=== PATIENT | male | born 1965 ===

== ENCOUNTER 2017-02-03 19:58 | Observation (INO) | payer MEDICAID, MEDICARE ==
[2017-02-03 19:58] VITALS: BMI 24.1
--- NOTE | 2017-02-03 21:06 | ED PDOC ---
Arrival/HPI - General Chief Complaint: Altered Mental Status Time Seen by Provider: 02/03/17 20:01 Historian: Patient - History of Present Illness Narrative History of Present Illness (Text): 02/03/17 20:58 Jan Arndt is a 51 year old male, with a past medical history of hypertension, and CVA , presents to the emergency department via EMS for evaluation following a witnessed seizure episode outdoors. Per collateral information, patient had foaming at the mouth and rolled back his eyes during the seizure. Patient does not recall what happened during the episode, but informs of tongue biting. Through square dance caller, it was established that patient has residual right sided weakness following previous stroke and is noncompliant with his medications. Currently patient is awake, alert and oriented X3. He also has a superficial abrasion to the left side of head due to fall. Denies any fever, chills, headache, chest pain, shortness of breath, nausea, vomiting, back pain, neck pain, or any other complaints at this time. Time/Duration: Prior to Arrival Symptom Onset: Sudden Activities at Onset: Light Context: Other (Outdoors ) Past Medical History - Provider Review Nursing Documentation Reviewed: Yes - Infectious Disease Hx of Infectious Diseases: None - Cardiac Hx Cardiac Disorders: Yes Hx Hypertension: Yes - Pulmonary Hx Respiratory Disorders: No - Neurological Hx Neurological Disorder: Yes HX Cerebrovascular Accident: Yes (2 years ago) Hx Seizures: Yes - HEENT Hx HEENT Disorder: No - Renal Hx Renal Disorder: No - Endocrine/Metabolic Hx Endocrine Disorders: No - Hematological/Oncological Hx Blood Disorders: No - Integumentary Hx Dermatological Disorder: No - Musculoskeletal/Rheumatological Hx Falls: No - Gastrointestinal Hx Gastrointestinal Disorders: No - Genitourinary/Gynecological Hx Genitourinary Disorders: No - Psychiatric Hx Psychophysiologic Disorder: No Hx Substance Use: (Post ictal) - Anesthesia Hx Anesthesia: No Family/Social History - Physician Review Nursing Documentation Reviewed: Yes Family/Social History: No Known Family HX Smoking Status: Unknown If Ever Smoked Hx Alcohol Use: No Hx Substance Use: (Post ictal) Allergies/Home Meds Allergies/Adverse Reactions: Allergies No Known Allergies Allergy (Verified 06/29/15 11:46) Home Medications: Home Meds Medication Instructions Recorded Confirmed Amlodipine Besylate 5 mg PO DAILY 06/29/15 06/29/15 Aspirin [Aspirin EC] 81 mg PO DAILY 06/29/15 06/29/15 Atorvastatin [Lipitor] 40 mg PO HS 06/29/15 06/29/15 Fluoxetine Hydrochloride [Prozac] 20 mg PO DAILY 06/29/15 06/29/15 Losartan/Hydrochlorothiazide 1 tab PO DAILY 06/29/15 06/29/15 [Losartan-Hctz 100-12.5 mg Tab] Metoprolol Succinate [Toprol XL] 50 mg PO DAILY 06/29/15 06/29/15 Oxcarbazepine [Trileptal] 600 mg PO BID 06/29/15 06/29/15 Review of Systems - Physician Review All systems were reviewed & negative as marked: Yes - Review of Systems Constitutional: Normal. absent: Fatigue, Fevers Respiratory: Normal. absent: SOB, Cough Cardiovascular: Normal. absent: Chest Pain, Palpitations Skin: Other (Abrasion on left pariental scalp ) Neurological: Seizure. absent: Headache, Dizziness Psychiatric: Normal Physical Exam Vital Signs Reviewed: Yes Vital Signs Temp Pulse Resp BP Pulse Ox 02/03/17 22:18 70 16 142/92 H 98 02/03/17 20:05 98.5 F 106 H 17 159/110 H 99 Temperature: Afebrile Blood Pressure: Hypertensive Pulse: Tachycardic Respiratory Rate: Normal Appearance: Positive for: Well-Appearing, Non-Toxic, Comfortable Pain Distress: None Mental Status: Positive for: Alert and Oriented X 3 Finger Stick Blood Glucose: 99 - Systems Exam Head: Present: Normocephalic, Abrasion (left pariental scalp ) Pupils: Present: PERRL Extroacular Muscles: Present: EOMI Conjunctiva: Present: Normal Mouth: Present: Moist Mucous Membranes Neck: Present: Normal Range of Motion Respiratory/Chest: Present: Clear to Auscultation, Good Air Exchange. No: Respiratory Distress, Accessory Muscle Use Cardiovascular: Present: Regular Rate and Rhythm, Normal S1, S2. No: Murmurs Abdomen: Present: Normal Bowel Sounds. No: Tenderness, Distention, Peritoneal Signs, Rebound, Guarding Upper Extremity: Present: Normal Inspection. No: Cyanosis, Edema Lower Extremity: Present: NORMAL PULSES, Neurovascularly Intact, Capillary Refill < 2 s, Other (Noted residual right lower extremity weakness ). No: Edema Neurological: Present: GCS=15, CN II-XII Intact, Speech Normal, Motor Func Grossly Intact, Normal Sensory Function Skin: Present: Warm, Dry, Normal Color. No: Rashes Psychiatric: Present: Alert, Oriented x 3, Normal Insight, Normal Concentration Medical Decision Making ED Course and Treatment: 02/03/17 21:08 Impression: A 51 year old male who presents to the emergency department for evaluation following a witnessed seizure episode. Differential Diagnosis included but are not limited to: seizure Plan: -- CT head -- EKG -- Labs, cardiac enzymes -- Chest X-ray -- Reassess and disposition Progress Notes: 02/03/17 21:15 EKG interpreted by me: Sinus tachycardia @ 104 bpm. LVH. Nonspecific STT changes. 02/03/17 21:25 Chest X-ray interpreted by me: No acute process. 02/03/17 22:24 CT Head results reviewed: FINDINGS: Brain: No acute intracranial hemorrhage. Multiple areas of prior cerebral infarction, including left frontoparietal and right basal ganglion. No edema. Ventricles: No significant ventriculomegaly. Bones: No acute displaced fracture. Sinuses: Unremarkable as visualized. No acute sinusitis. Mastoid air cells: Unremarkable as visualized. No mastoid effusion. IMPRESSION: Stable CT examination of the head, dating back to 06/30/2015, without acute intracranial hemorrhage, or suspicious mass effect. 02/03/17 22:25 Case discussed with clay Santos MD, who is aware and agrees with the plan to observe patient at telemetry for seizure. Accepts patient under hospitalist service. - Lab Interpretations Lab Results: 02/03/17 20:50 02/03/17 20:50 Lab Results 02/03/17 20:50: WBC 3.8 L D, RBC 4.47, Hgb 14.3, Hct 39.3 L, MCV 87.9, MCH 32.0 , MCHC 36.4, RDW 11.8, Plt Count 162, MPV 10.3 02/03/17 20:50: Sodium 140, Potassium 3.7, Chloride 103, Carbon Dioxide 24, Anion Gap 17, BUN 11, Creatinine 1.0, Est GFR ( Amer) > 60, Est GFR (Non- Af Amer) > 60, Random Glucose 88, Calcium 9.2, Total Bilirubin 1.2, AST 30, ALT 30, Alkaline Phosphatase 66, Lactate Dehydrogenase 495, Total Creatine Kinase 381 H, CK-MB (CK-2) 4.1 H, CK-MB (CK-2) % Cancelled, Troponin I 0.02, Total Protein 7.3, Albumin 4.0, Globulin 3.3, Albumin/Globulin Ratio 1.2 02/03/17 20:50: PT 13.2 H, INR 1.22 H, APTT 27.7 I have reviewed the lab results: Yes - RAD Interpretation Radiology Orders: 02/03/17 20:29 HEAD W/O CONTRAST [CT] Stat CHEST PORTABLE [RAD] Stat Rewriter: ED Physician, Radiologist - EKG Interpretation Interpreted by ED Physician: Yes Type: 12 lead EKG - Medication Orders Current Medication Orders: Phenytoin 1,000 mg/ Sodium (Chloride) 250 mls @ 300 mls/hr IVPB STAT STA Stop: 02/03/17 23:13 - Scribe Statement The provider has reviewed the documentation as recorded by the Jaleesaibe Rachel Crabtree Provider Attestation: Provider Scribe Attestation: All medical record entries made by the Scribe were at my direction and personally dictated by me. I have reviewed the chart and agree that the record accurately reflects my personal performance of the history, physical exam, medical decision making, and the department course for this patient. I have also personally directed, reviewed, and agree with the discharge instructions and disposition. Disposition/Present on Arrival - Present on Arrival Any Indicators Present on Arrival: No History of DVT/PE: No History of Uncontrolled Diabetes: No Urinary Catheter: No History of Decub. Ulcer: No History Surgical Site Infection Following: None - Disposition Have Diagnosis and Disposition been Completed?: Yes Diagnosis: Seizure Disposition: HOSPITALIZED Disposition Time: 22:27 Patient Plan: Observation Condition: STABLE Referrals: PCP,NO [Primary Care Provider] - Follow up with primary
[2017-02-03 21:12] LABS: HEMOGLOBIN 14.3 gm/dL (14.0-18.0); MEAN CELL VOLUME 87.9 fL (80.0-105.0); MEAN CORPUSCULAR HGB CONC 36.4 g/dl (31.0-37.0); MEAN PLATELET VOLUME 10.3 fl (7.0-11.0); RBC 4.47 10^6/uL (3.5-6.1); RED CELL DISTRIBUTION WIDTH 11.8 % (11.5-14.5); WHITE BLOOD COUNT 3.8 10^3/ul (4.5-11.0)
[2017-02-03 21:21] LABS: ALB/GLOB RATIO 1.2 (1.1-1.8); ALT/SGPT 30 U/L (7-56); AST/SGOT 30 U/L (15-59); BLOOD UREA NITROGEN 11 mg/dL (7-21); CALCIUM 9.2 mg/dL (8.4-10.5); GFR AFRICAN-AMERICAN > 60; GFR NON-AFRICAN AMERICAN > 60
[2017-02-03 21:32] LABS: TROPONIN I 0.02 ng/mL
[2017-02-03 21:36] LABS: CK-MB 4.1 ng/mL (0.0-3.6)
--- NOTE | 2017-02-03 22:07 | CT ---
EXAM: CT Head Without Intravenous Contrast CLINICAL HISTORY: 51 years old, male; Signs and symptoms; Other: Seizures; Additional info: Seizure TECHNIQUE: Axial computed tomography images of the head/brain without intravenous contrast. This CT exam was performed using one or more of the following dose reduction techniques: automated exposure control, adjustment of the mA and/or kV according to patient size, and/or use of iterative reconstruction technique. COMPARISON: CT - HEAD W/O CONTRAST 06/30/2015 11:56:33 AM FINDINGS: Brain: No acute intracranial hemorrhage. Multiple areas of prior cerebral infarction, including left frontoparietal and right basal ganglion. No edema. Ventricles: No significant ventriculomegaly. Bones: No acute displaced fracture. Sinuses: Unremarkable as visualized. No acute sinusitis. Mastoid air cells: Unremarkable as visualized. No mastoid effusion. IMPRESSION: Stable CT examination of the head, dating back to 06/30/2015, without acute intracranial hemorrhage, or suspicious mass effect.
[2017-02-03 22:19] LABS: INR 1.22 (0.93-1.08); PARTIAL THROMBOPLASTIN TIME 27.7 Seconds (23.7-30.8); PROTHROMBIN TIME 13.2 Seconds (9.9-11.8)
[2017-02-04 02:31] LABS: CK-MB 4.8 ng/mL (0.0-3.6)
--- NOTE | 2017-02-04 02:53 | CP.PCM.HP ---
Addendum entered and electronically signed by Marlon Orta DO 03:40: For A/P: DVT PPHXS is by Heparin Original Note: <Marlon Orta - Last Filed: 02/04/17 02:53> History of Present Illness - History of Present Illness History of Present Illness: Marlon Orta DO PGY-1 CC: Seizure HPI: Mr. Galvan is a 51 y/o AA male with a PMHx of HTN and CVA (Aug 2013) who presented with a c/o seizure that started around 8:00 PM on 02/03/17. Patient stated that he did feel a mild visual aura as well as numbness and tingling in his right LE before the seizure. He also stated that he knew it was coming so he sat down. Patient stated that he has had two seizures in the past. The seizure was witnessed by a bystander unknown to the patient, who stated that he was foaming at the mouth and that his eyes were rolling back into his head. Patient stated that he did not lose bowel or bladder, and that he did not hit his head, but per ED he did hit the left side of his head. Patient further stated that he felt a little confused at the time he was examined. Patient denied fever, chills, headache, chest pain, sob, nausea, vomiting, diarrhea, or any other complaints not outlined in ROS below. PMHx: See HPI PSHx: Not elicited Allergies: NKDA SocHx: EtOH: Smoking: Illicits: FamHx: Unavailable Meds: Amlodipine, ASA, Lipitor, Prozac, Losartan/HCTZ, Metoprolol, Oxcarbazepine all meds noncompliant Present on Admission - Present on Admission Any Indicators Present on Admission: No Review of Systems - Review of Systems Review of Systems: ROS: Constitutional: pt denies fever, chills, generalized weakness ENT: pt denies dysphagia, ofalgia, hearing deficit, rhinorrhea Eyes: pt denies sudden loss of vision, diplopia, blurred vision MSK: pt denies muscle stiffness, joint pain, extremity cramping Cardio: pt denies cp, sob, dvt Pulm: pt denies cough, hemoptysis, wheeze GI: pt denies loss of appetite, abdominal pain, constipation, melena, n/v/d : pt denies burning on urination, urinary frequency, hematuria, urinary urgency Neuro: +pt admits right sided weakness in LE; pt denies paresis, paresthesia, dizziness, henning, numbness, tingling Derm: pt denies skin changes, lesions, nail changes Endo: pt denies intolerance to heat/cold, diaphoresis, night sweats, polydipsia Psych: pt denies anxiety, depression, mood changes Past Patient History - Infectious Disease Hx of Infectious Diseases: None - Past Social History Smoking Status: Unknown If Ever Smoked - CARDIAC Hx Cardiac Disorders: Yes Hx Hypertension: Yes - PULMONARY Hx Respiratory Disorders: No - NEUROLOGICAL Hx Neurological Disorder: Yes HX Cerebrovascular Accident: Yes (2 years ago) Hx Seizures: Yes - HEENT Hx HEENT Problems: No - RENAL Hx Chronic Kidney Disease: No - ENDOCRINE/METABOLIC Hx Endocrine Disorders: No - HEMATOLOGICAL/ONCOLOGICAL Hx Blood Disorders: No - INTEGUMENTARY Hx Dermatological Problems: No - MUSCULOSKELETAL/RHEUMATOLOGICAL Hx Falls: No - GASTROINTESTINAL Hx Gastrointestinal Disorders: No - GENITOURINARY/GYNECOLOGICAL Hx Genitourinary Disorders: No - PSYCHIATRIC Hx Psychophysiologic Disorder: No Hx Substance Use: (Post ictal) - SURGICAL HISTORY Hx Surgeries: No - ANESTHESIA Hx Anesthesia: No Meds Allergies/Adverse Reactions: Allergies Allergy/AdvReac Type Severity Reaction Status Date / Time No Known Allergies Allergy Verified 06/29/15 11:46 Physical Exam - Additional Findings Additional findings: Physical Exam: VS: As above Constitutional: fatigued male, a&o x 4, nad Head and Neck: +mild abrasion on left frontal lobe; neck supple, no jvd, trachea midline, carotid midline, no cervical/head mass Eyes: german, nonicteric sclera, eom intact ENT: auditory acuity grossly intact, throat not congested, no nasal deformity Cardio: rrr, no m/r/g, no carotid bruit, nml s1, s2 Pulm: no accessory muscle use, equal nml breath sounds bilaterally, ctab Abd: s/nt/nd, nbs x 4 q, no palpable masses Derm: no rashes, no ulcers, no lesions Extr: no edema, no cyanosis, no calf tenderness, no lesions, no varicosities Neuro: +post-ictal, slightly confused; cn II-XII grossly intact, ue and le 3+ muscle strength bilaterally, no los ue, le bilaterally and core Results - Vital Signs Recent Vital Signs: Last Vital Signs Temp 98.5 F 02/03/17 20:05 Pulse 60 02/04/17 01:19 Resp 16 02/04/17 00:57 BP 161/102 H 02/04/17 01:19 Pulse Ox 99 02/04/17 00:57 - Labs Result Diagrams: 02/03/17 20:50 02/03/17 20:50 Labs: Laboratory Results - last 24 hr 02/04/17 01:50 Phosphorus 3.5 Magnesium 2.0 Total Creatine Kinase 416 H CK-MB (CK-2) 4.8 H CK-MB (CK-2) % Cancelled Assessment & Plan - Assessment and Plan (Free Text) Assessment: A/P: 1.) Seizure - Ativan PRN - Mg level - Phos level - Neuro c/s: Dr. Shearer - Phenytoin given in ED - Levetiracetam PO bid 2.) HTN - Hydralazine 10 mg PO q6 3.) Leukopenia Etiology Unknown - HIV Test - Vitamin B12 level - Folate level 4.) Check AM Labs - CBC, CMP 5.) DVT PPHXS - 6.) GI PPHXS - Protonix <Marie Marcano - Last Filed: 02/04/17 04:42> Results - Vital Signs Recent Vital Signs: Last Vital Signs Temp 98.5 F 02/03/17 20:05 Pulse 60 02/04/17 01:19 Resp 16 02/04/17 00:57 BP 161/102 H 02/04/17 01:19 Pulse Ox 99 02/04/17 00:57 - Labs Result Diagrams: 02/03/17 20:50 02/03/17 20:50 Labs: Laboratory Results - last 24 hr 02/04/17 01:50 Phosphorus 3.5 Magnesium 2.0 Total Creatine Kinase 416 H CK-MB (CK-2) 4.8 H CK-MB (CK-2) % Cancelled Attending/Attestation - Attestation I have personally seen and examined this patient.: Yes I have fully participated in the care of the patient.: Yes I have reviewed all pertinent clinical information: Yes Notes (Text): 02/04/17 04:37 Patient was seen when he was in the ER in bed # 3. Agree with history, physical examination, assessment and plan. 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
[2017-02-04] MEDS ORDERED: Pantoprazole 40 mg EC Tab PO SCH (06:00)
[2017-02-04 06:37] VITALS: O2SAT 100
--- NOTE | 2017-02-04 07:27 | RAD ---
HISTORY: seizure COMPARISON: No prior. FINDINGS: LUNGS: No active pulmonary disease. PLEURA: No significant pleural effusion identified, no pneumothorax apparent. CARDIOVASCULAR: Normal. OSSEOUS STRUCTURES: No significant abnormalities. VISUALIZED UPPER ABDOMEN: Normal. OTHER FINDINGS: None. IMPRESSION: No active disease.
--- NOTE | 2017-02-04 08:01 | CP.PCM.CON ---
<Celestine Foreman - Last Filed: 02/04/17 11:01> History of Present Illness - History of Present Illness History of Present Illness: PGY-[address] Shearer's Neurology Service: Reason for consult: seizures This is a 51 year old male with PMHx seizure disorder, CVA (08/2013), HTN who comes into the hospital following a witnessed seizure. Witness was an unrelated bystander who reported that the patient was seen foaming at the mouth and eyes rolled up. Patient had fallen and hit head during the episode as well as bit his tongue. Patient has had multiple seizures in the past and is noncompliant with his medications and physician follow ups. Patient recently lost insurance coverage 2 months ago further contributing to his noncompliance. Per patient, his first seizure was in November 2013. Patient reported that the most recent seizure prior was a month ago, but he did not seek medical care. Patient has poor sleep, regularly getting 3-4 hours nightly. Patient complains of residual right sided lower extremity weakness from prior CVA. Patient ambulates with difficulty and used to use a cane at baseline but has reported that he does not use any assistive devices presently. PMHx: Seizure d/o, CVA in 2013, uncontrolled HTN PSHx: Denies Allergies: NKDA Social: Denies tobacco, alcohol, drugs. Review of Systems - Constitutional Constitutional: Weakness. absent: Headache - EENT Eyes: absent: Change in Vision Ears: absent: Decreased Hearing - Cardiovascular Cardiovascular: absent: Chest Pain - Respiratory Respiratory: absent: Dyspnea - Gastrointestinal Gastrointestinal: absent: Abdominal Pain, Nausea, Vomiting - Genitourinary Genitourinary: absent: Dysuria - Neurological Neurological: absent: Dizziness, Numbness, Headaches, Tingling - Endocrine Endocrine: absent: Palpitations Past Patient History - Infectious Disease Hx of Infectious Diseases: None - Past Social History Smoking Status: Unknown If Ever Smoked - CARDIAC Hx Cardiac Disorders: Yes Hx Hypertension: Yes - PULMONARY Hx Respiratory Disorders: No - NEUROLOGICAL Hx Neurological Disorder: Yes HX Cerebrovascular Accident: Yes (2 years ago) Hx Seizures: Yes - HEENT Hx HEENT Problems: No - RENAL Hx Chronic Kidney Disease: No - ENDOCRINE/METABOLIC Hx Endocrine Disorders: No - HEMATOLOGICAL/ONCOLOGICAL Hx Blood Disorders: No - INTEGUMENTARY Hx Dermatological Problems: No - MUSCULOSKELETAL/RHEUMATOLOGICAL Hx Falls: No - GASTROINTESTINAL Hx Gastrointestinal Disorders: No - GENITOURINARY/GYNECOLOGICAL Hx Genitourinary Disorders: No - PSYCHIATRIC Hx Psychophysiologic Disorder: No Hx Substance Use: (Post ictal) - SURGICAL HISTORY Hx Surgeries: No - ANESTHESIA Hx Anesthesia: No Meds Allergies/Adverse Reactions: Allergies Allergy/AdvReac Type Severity Reaction Status Date / Time No Known Allergies Allergy Verified 06/29/15 11:46 - Medications Medications: Current Medications Aspirin (Ecotrin) 81 mg PO DAILY [facility] Atorvastatin Calcium (Lipitor) 40 mg PO HS [facility] Hydralazine HCl (Apresoline) 10 mg PO Q4H PRN PRN Reason: Diastolic blood pressure > 90 Last Admin: 02/04/17 06:00 Dose: 10 mg Levetiracetam (Keppra) 500 mg PO BID [facility] Lorazepam (Ativan) 1 mg IVP Q6H PRN; Protocol PRN Reason: Seizure activity Pantoprazole Sodium (Protonix Ec Tab) 40 mg PO 0600 [facility] Stop: 02/08/17 06:01 Last Admin: 02/04/17 06:00 Dose: 40 mg Physical Exam - Constitutional Appears: Non-toxic, No Acute Distress - Head Exam Head Exam: NORMOCEPHALIC. absent: ATRAUMATIC (bruised from fall during seizure) - Eye Exam Eye Exam: EOMI, PERRL - ENT Exam ENT Exam: Mucous Membranes Moist - Respiratory Exam Respiratory Exam: Clear to Auscultation Bilateral - Cardiovascular Exam Cardiovascular Exam: REGULAR RHYTHM - GI/Abdominal Exam GI & Abdominal Exam: Normal Bowel Sounds - Neurological Exam Neurological exam: Alert, CN II-XII Intact, Oriented x3 Additional comments: Dysarthic speech. Up-going plantar responses. No pronator drift. Normal finger to nose. Muscle strength 5/5 bilateral upper extremities and left lower extremity. Muscle Strength 4- /5 right lower extremity. Atrophy and loss of bulk of right lower extremity. Increased tone and rigidity of right ankle musculature. Sensations intact to light touch bilaterally upper and lower extremities. Results - Vital Signs Recent Vital Signs: Last Vital Signs Temp 98.1 F 02/04/17 06:00 Pulse 62 02/04/17 06:00 Resp 20 02/04/17 06:00 BP 160/109 H 02/04/17 06:00 Pulse Ox 100 02/04/17 06:00 - Labs Result Diagrams: 02/03/17 20:50 02/03/17 20:50 Labs: Laboratory Results - last 24 hr 02/04/17 01:50 Phosphorus 3.5 Magnesium 2.0 Total Creatine Kinase 416 H CK-MB (CK-2) 4.8 H CK-MB (CK-2) % Cancelled Assessment & Plan - Assessment and Plan (Free Text) Assessment: This is a 51 year old male with PMHx seizure disorder, CVA (08/2013), HTN who comes into the hospital following a witnessed seizure. This was a breakthrough seizure secondary to medication noncompliance, sleep deprivation, and unstable vitals. Patient's poor sleep can also further precipitate seizures. CT negative for acute pathology as noted below. Patient has gait unsteadiness secondary to deconditioned status. CT Head w/o contrast FINDINGS: Brain: No acute intracranial hemorrhage. Multiple areas of prior cerebral infarction, including left frontoparietal and right basal ganglion. No edema. Ventricles: No significant ventriculomegaly. Bones: No acute displaced fracture. Sinuses: Unremarkable as visualized. No acute sinusitis. Mastoid air cells: Unremarkable as visualized. No mastoid effusion. IMPRESSION: Stable CT examination of the head, dating back to 06/30/2015, without acute intracranial hemorrhage, or suspicious mass effect. Plan: 1) Continue Keppra 500 mg BID 2) Follow up EEG 3) Needs better control of hypertension 4) Maintain SBP between 120-130 5) PT evaluation for gait unsteadiness and requesting a right AFO Case discussed with Dr. Janki Foreman, PGY-1 - Date & Time Date: 02/04/17 Time: 09:48 <Nickolas Shearer - Last Filed: 02/04/17 11:45> Meds - Medications Medications: Current Medications Aspirin (Ecotrin) 81 mg PO DAILY [facility] Last Admin: 02/04/17 10:33 Dose: 81 mg Atorvastatin Calcium (Lipitor) 40 mg PO HS [facility] Hydralazine HCl (Apresoline) 10 mg PO Q4H PRN PRN Reason: Diastolic blood pressure > 90 Last Admin: 02/04/17 10:33 Dose: 10 mg Levetiracetam (Keppra) 500 mg PO BID [facility] Last Admin: 02/04/17 10:33 Dose: 500 mg Lorazepam (Ativan) 1 mg IVP Q6H PRN; Protocol PRN Reason: Seizure activity Pantoprazole Sodium (Protonix Ec Tab) 40 mg PO 0600 [facility] Stop: 02/08/17 06:01 Last Admin: 02/04/17 06:00 Dose: 40 mg Results - Vital Signs Recent Vital Signs: Last Vital Signs Temp 98.1 F 02/04/17 06:00 Pulse 62 02/04/17 06:00 Resp 20 02/04/17 06:00 BP 145/92 H 02/04/17 10:33 Pulse Ox 100 02/04/17 06:00 - Labs Result Diagrams: 02/03/17 20:50 02/03/17 20:50 Labs: Laboratory Results - last 24 hr 02/04/17 01:50 Phosphorus 3.5 Magnesium 2.0 Total Creatine Kinase 416 H CK-MB (CK-2) 4.8 H CK-MB (CK-2) % Cancelled Attending/Attestation - Attestation I have personally seen and examined this patient.: Yes I have fully participated in the care of the patient.: Yes I have reviewed all pertinent clinical information: Yes Notes (Text): 02/04/17 11:45 EEG SHOWED MILD LEFT FRONTAL SLOWING WITHOUT ANY EPILEPTIFORM ACTIVITY, WILL BE ON KEPPRA 500MGPO BID. NO DRIVING. NEED PT/OT AND A RIGHT AFO.
[2017-02-04 12:33] LABS: FOLATE 13.8 ng/mL
--- NOTE | 2017-02-04 14:02 | CP.PCM.PN ---
Subjective - Date & Time of Evaluation Date of Evaluation: 02/04/17 Time of Evaluation: 10:15 - Subjective Subjective: EEG REPORT: CONDITION OF THIS RECORDING: DROWSY DIAGNOSIS: EVALUATE FOR SEIZURE MEDICATIONS:l REVIEWED BY NURSE'S RECONCILIATION INTERPRETATION: THIS IS A 16 CHANNEL INTERNATIONAL RECORDING. THE BACKEND OF THIS TRACING WAS COMPOSED OF 6-7 CYCLES PER SECOND. THERE WAS SMALL AMOUNT OF BETA ACTIVITY OF 16-20 CPS IN THE RECORDING AND INCREASE AMOUNT OF THETA ACTIVITY OF 5-7 CPS SEEN IN THIS TRACING. DROWSINESS WAS CHARACTERIZED BY MIXED BETA AND THETA ACTIVITIES. SLEEP WAS CHARACTERIZED BY VERTEX TRANSIENT WAVE, SLEEP SPINDLES, AND B/L SLOWING. PHOTIC STIMULATION SHOWED NO CHANGE IN THE TRACING. NO PAROXYSMAL ACTIVITY NOTED IN THIS RECORDING. EMG ARTIFICAT WAS SEEN. THERE WAS BETA ACTIVITY LIKELY MEDICATION EFFECT. CONCLUSION: THIS IS AN ABNORMAL EEG SHOWING MILD LEFT SLOWING THROUGHOUT THE RECORDING CONSISTENT WITH MILD B/L CEREBRAL DYSFUNCTION. NO SEIZURE ACTIVITY. Humaira JOHNSON MD Objective - Vital Signs/Intake and Output Vital Signs (last 24 hours): Temp Pulse Resp BP Pulse Ox 98.4 F 63 20 130/97 H 100 02/04/17 12:00 02/04/17 12:00 02/04/17 12:00 02/04/17 12:00 02/04/17 06:00 Intake and Output: 02/04/17 02/04/17 06:59 18:59 Intake Total 180 Output Total 300 Balance -120 - Medications Medications: Current Medications Aspirin (Ecotrin) 81 mg PO DAILY [facility] Last Admin: 02/04/17 10:33 Dose: 81 mg Atorvastatin Calcium (Lipitor) 40 mg PO HS [facility] Hydralazine HCl (Apresoline) 10 mg PO Q4H PRN PRN Reason: Diastolic blood pressure > 90 Last Admin: 02/04/17 10:33 Dose: 10 mg Levetiracetam (Keppra) 500 mg PO BID [facility] Last Admin: 02/04/17 10:33 Dose: 500 mg Lorazepam (Ativan) 1 mg IVP Q6H PRN; Protocol PRN Reason: Seizure activity Pantoprazole Sodium (Protonix Ec Tab) 40 mg PO 0600 [facility] Stop: 02/08/17 06:01 Last Admin: 02/04/17 06:00 Dose: 40 mg - Labs Labs: PT 13.2 Seconds (9.9-11.8) H 02/03/17 20:50 INR 1.22 (0.93-1.08) H 02/03/17 20:50 APTT 27.7 Seconds (23.7-30.8) 02/03/17 20:50
[2017-02-04] MEDS ORDERED: Non Formulary Medication (Losartan/Hydrochlorothiazide [Losartan-Hctz 100-12.5 Mg Tab] 1 T PO SCH (14:30)
[2017-02-04] MEDS ORDERED: Metoprolol Succinate 50 mg XL Tab PO SCH (14:30)
--- NOTE | 2017-02-04 16:42 | CARD ---
APPROVED REPORT EKG Measurement Heart [id number] <Conclusion> Sinus tachycardia Possible Left atrial enlargement Left ventricular hypertrophy Abnormal ECG
[2017-02-04 18:21] VITALS: PULSE 57; RESP 18; TEMP 98.3
[2017-02-04 19:37] VITALS: BP 152/102
[2017-02-04 22:56] LABS: PH,URINE 6.5 (4.7-8.0); URINE BILIRUBIN NEGATIVE (NEGATIVE); URINE BLOOD NEGATIVE (NEGATIVE); URINE GLUCOSE (UA) NEGATIVE (NEGATIVE); URINE LEUKOCYTE ESTERASE NEGATIVE Leu/uL (NEGATIVE); URINE NITRATE NEGATIVE (NEGATIVE); URINE PROTEIN NEGATIVE mg/dL (<30 mg/dL); URINE UROBILINOGEN 0.2 E.U./dL (<1 E.U./dL)
[2017-02-04 22:58] LABS: URINE APPEARANCE CLEAR (CLEAR); URINE COLOR YELLOW (YELLOW)
--- NOTE | 2017-02-04 23:33 | CP.PCM.DIS ---
<DAVID ALEXANDRA - Last Filed: 02/04/17 23:10> Provider - Provider Date of Admission: 02/03/17 22:26 Attending physician: Nelly Guerrero MD Primary care physician: NO PRIMARY CARE PROVIDER Time Spent in preparation of Discharge (in minutes): 45 Hospital Course - Lab Results Lab Results: Most Recent Lab Values WBC 3.8 10^3/ul (4.5-11.0) L D 02/03/17 20:50 RBC 4.47 10^6/uL (3.5-6.1) 02/03/17 20:50 Hgb 14.3 gm/dL (14.0-18.0) 02/03/17 20:50 Hct 39.3 % (42.0-52.0) L 02/03/17 20:50 MCV 87.9 fL (80.0-105.0) 02/03/17 20:50 MCH 32.0 pg (25.0-35.0) 02/03/17 20:50 MCHC 36.4 g/dl (31.0-37.0) 02/03/17 20:50 RDW 11.8 % (11.5-14.5) 02/03/17 20:50 Plt Count 162 10^3/uL (120.0-450.0) 02/03/17 20:50 MPV 10.3 fl (7.0-11.0) 02/03/17 20:50 PT 13.2 Seconds (9.9-11.8) H 02/03/17 20:50 INR 1.22 (0.93-1.08) H 02/03/17 20:50 APTT 27.7 Seconds (23.7-30.8) 02/03/17 20:50 Sodium 140 mmol/L (132-148) 02/03/17 20:50 Potassium 3.7 mmol/L (3.6-5.0) 02/03/17 20:50 Chloride 103 mmol/L (98-107) 02/03/17 20:50 Carbon Dioxide 24 mmol/L (21-33) 02/03/17 20:50 Anion Gap 17 (10-20) 02/03/17 20:50 BUN 11 mg/dL (7-21) 02/03/17 20:50 Creatinine 1.0 mg/dL (0.5-1.4) 02/03/17 20:50 Est GFR ( Amer) > 60 02/03/17 20:50 Est GFR (Non-Af Amer) > 60 02/03/17 20:50 Random Glucose 88 mg/dL (70-110) 02/03/17 20:50 Calcium 9.2 mg/dL (8.4-10.5) 02/03/17 20:50 Phosphorus 3.5 mg/dL (2.5-4.5) 02/04/17 01:50 Magnesium 2.0 mg/dL (1.7-2.2) 02/04/17 01:50 Total Bilirubin 1.2 mg/dL (0.2-1.3) 02/03/17 20:50 AST 30 U/L (15-59) 02/03/17 20:50 ALT 30 U/L (7-56) 02/03/17 20:50 Alkaline Phosphatase 66 U/L (38-133) 02/03/17 20:50 Lactate Dehydrogenase 495 U/L (333-699) 02/03/17 20:50 Total Creatine Kinase 416 U/L (35-230) H 02/04/17 01:50 CK-MB (CK-2) 4.8 ng/mL (0.0-3.6) H 02/04/17 01:50 CK-MB (CK-2) % Cancelled 02/03/17 20:50 Troponin I 0.02 ng/mL 02/03/17 20:50 Total Protein 7.3 g/dL (5.8-8.3) 02/03/17 20:50 Albumin 4.0 g/dL (3.0-4.8) 02/03/17 20:50 Globulin 3.3 gm/dL 02/03/17 20:50 Albumin/Globulin Ratio 1.2 (1.1-1.8) 02/03/17 20:50 Vitamin B12 391 pg/mL (239-931) 02/04/17 07:05 Folate 13.8 ng/mL 02/04/17 07:05 Urine Color Yellow (YELLOW) 02/04/17 22:49 Urine Appearance Clear (CLEAR) 02/04/17 22:49 Urine pH 6.5 (4.7-8.0) 02/04/17 22:49 Ur Specific [place] 1.015 (1.005-1.035) 02/04/17 22:49 Urine Protein Negative mg/dL (<30 mg/dL) 02/04/17 22:49 Urine Glucose (UA) Negative mg/dL (NEGATIVE) 02/04/17 22:49 Urine Ketones Negative mg/dL (NEGATIVE) 02/04/17 22:49 Urine Blood Negative (NEGATIVE) 02/04/17 22:49 Urine Nitrate Negative (NEGATIVE) 02/04/17 22:49 Urine Bilirubin Negative (NEGATIVE) 02/04/17 22:49 Urine Urobilinogen 0.2 E.U./dL (<1 E.U./dL) 02/04/17 22:49 Ur Leukocyte Esterase Negative Deisy/uL (NEGATIVE) 02/04/17 22:49 - Hospital Course Hospital Course: Mr Galvan is a 51yo M PMH CVA (08/2013) with RLE residual deficit and subsequent seizures (11 in total), arrhythmia and HTN presents to [facility] on 02/04 s/p witnessed seizure. Pt felt a mild visual aura, numbness and tingling in RUE prior to onset of seizure and sat down. +tongue biting, denies incontinence or head trauma, ED reported L head abrasion. Noncompliant on medications 2/2 losing insurance. IN ED, EKG showed sinus tachy @ 104bpm, LVH and nonspecific STT changes. CXR was normal. CT Head showed no acute intracranial hemorrhage but did show multiple areas of prior cerebral infarctions. Pheyntoin was given in the ED, Keppra 500 BID was added. Neurology was consulted and patient was transferred to the medicine floors for further management. Pt was hypertensive and was given hydralazine PRN. This morning, the pt denies any chest pain, weakness, headaches, changes in vision/mental status, palpitations, sob, fevers, night sweats, or chills. Neurology ordered an EEG which showed MILD LEFT FRONTAL SLOWING WITHOUT ANY EPILEPTIFORM ACTIVITY. Neuro recs Keppra 500BID, no driving and PT/OT with a RLE AFO. Patient is prepped for discharge and will be given scripts for his medications and f/u with [facility] clinic and Dr. Shearer, Neurology. - Date & Time of H&P Date of H&P: 02/04/17 Time of H&P: 02:50 Discharge Exam - Head Exam Head Exam: NORMOCEPHALIC. absent: ATRAUMATIC (bruised from fall during seizure) - Eye Exam Eye Exam: EOMI, Normal appearance, PERRL Pupil Exam: NORMAL ACCOMODATION - ENT Exam ENT Exam: Mucous Membranes Moist, Normal Exam - Respiratory Exam Respiratory Exam: Clear to PA & Lateral, NORMAL BREATHING PATTERN, UNREMARKABLE. absent: Chest Wall Tenderness, Rales, Rhonchi, Wheezes, Respiratory Distress, Stridor - Cardiovascular Exam Cardiovascular Exam: RRR, +S1, +S2. absent: Gallop, JVD, Rubs, Systolic Murmur - GI/Abdominal Exam GI & Abdominal Exam: Normal Bowel Sounds, Soft. absent: Distended, Tenderness - Extremities Exam Additional comments: upgoing plantar responses, inc tone and rigidity in R ankle musculature, atrophy and loss of bulk RLE. Str 5/5 B/L UE and LLE, 4-/5 RLE. - Neurological Exam Neurological exam: Alert, CN II-XII Intact, Motor Sensory Deficit (RLE motor str 4-/5, sensory intact x4), Oriented x3 - Psychiatric Exam Psychiatric exam: Normal Affect, Normal Mood - Skin Skin Exam: Normal Color, Warm Discharge Plan - Discharge Medications Prescriptions: amLODIPine [Norvasc] 5 mg PO DAILY #7 tab Aspirin [Ecotrin] 81 mg PO DAILY #7 Atorvastatin [Lipitor] 40 mg PO HS #7 hydroCHLOROthiazide [Hydrodiuril] 25 mg PO DAILY #7 tab levETIRAcetam [Keppra] 500 mg PO BID #14 tab Losartan [Cozaar] 100 mg PO DAILY #7 tab Metoprolol Succinate [Toprol XL] 50 mg PO DAILY #7 - Follow Up Plan Condition: STABLE Disposition: HOME/ ROUTINE Instructions: Nonepileptic Seizures (DC), Chronic Hypertension (GEN) Additional Instructions: Follow up with [facility] health clinic within 1 week Follow up with Dr. Shearer, Neurology DO NOT OPERATE MOTOR VEHICLES Please return to hospital if symptoms worsen Referrals: PCP,NO [Primary Care Provider] - <Nelly Guerrero - Last Filed: 02/05/17 12:33> Provider - Provider Date of Admission: 02/03/17 22:26 Attending physician: Nelly Guerrero MD Primary care physician: NO PRIMARY CARE PROVIDER Hospital Course - Lab Results Lab Results: Most Recent Lab Values WBC 3.8 10^3/ul (4.5-11.0) L D 02/03/17 20:50 RBC 4.47 10^6/uL (3.5-6.1) 02/03/17 20:50 Hgb 14.3 gm/dL (14.0-18.0) 02/03/17 20:50 Hct 39.3 % (42.0-52.0) L 02/03/17 20:50 MCV 87.9 fL (80.0-105.0) 02/03/17 20:50 MCH 32.0 pg (25.0-35.0) 02/03/17 20:50 MCHC 36.4 g/dl (31.0-37.0) 02/03/17 20:50 RDW 11.8 % (11.5-14.5) 02/03/17 20:50 Plt Count 162 10^3/uL (120.0-450.0) 02/03/17 20:50 MPV 10.3 fl (7.0-11.0) 02/03/17 20:50 PT 13.2 Seconds (9.9-11.8) H 02/03/17 20:50 INR 1.22 (0.93-1.08) H 02/03/17 20:50 APTT 27.7 Seconds (23.7-30.8) 02/03/17 20:50 Sodium 140 mmol/L (132-148) 02/03/17 20:50 Potassium 3.7 mmol/L (3.6-5.0) 02/03/17 20:50 Chloride 103 mmol/L (98-107) 02/03/17 20:50 Carbon Dioxide 24 mmol/L (21-33) 02/03/17 20:50 Anion Gap 17 (10-20) 02/03/17 20:50 BUN 11 mg/dL (7-21) 02/03/17 20:50 Creatinine 1.0 mg/dL (0.5-1.4) 02/03/17 20:50 Est GFR ( Amer) > 60 02/03/17 20:50 Est GFR (Non-Af Amer) > 60 02/03/17 20:50 Random Glucose 88 mg/dL (70-110) 02/03/17 20:50 Calcium 9.2 mg/dL (8.4-10.5) 02/03/17 20:50 Phosphorus 3.5 mg/dL (2.5-4.5) 02/04/17 01:50 Magnesium 2.0 mg/dL (1.7-2.2) 02/04/17 01:50 Total Bilirubin 1.2 mg/dL (0.2-1.3) 02/03/17 20:50 AST 30 U/L (15-59) 02/03/17 20:50 ALT 30 U/L (7-56) 02/03/17 20:50 Alkaline Phosphatase 66 U/L (38-133) 02/03/17 20:50 Lactate Dehydrogenase 495 U/L (333-699) 02/03/17 20:50 Total Creatine Kinase 416 U/L (35-230) H 02/04/17 01:50 CK-MB (CK-2) 4.8 ng/mL (0.0-3.6) H 02/04/17 01:50 CK-MB (CK-2) % Cancelled 02/03/17 20:50 Troponin I 0.02 ng/mL 02/03/17 20:50 Total Protein 7.3 g/dL (5.8-8.3) 02/03/17 20:50 Albumin 4.0 g/dL (3.0-4.8) 02/03/17 20:50 Globulin 3.3 gm/dL 02/03/17 20:50 Albumin/Globulin Ratio 1.2 (1.1-1.8) 02/03/17 20:50 Vitamin B12 391 pg/mL (239-931) 02/04/17 07:05 Folate 13.8 ng/mL 02/04/17 07:05 Urine Color Yellow (YELLOW) 02/04/17 22:49 Urine Appearance Clear (CLEAR) 02/04/17 22:49 Urine pH 6.5 (4.7-8.0) 02/04/17 22:49 Ur Specific [place] 1.015 (1.005-1.035) 02/04/17 22:49 Urine Protein Negative mg/dL (<30 mg/dL) 07/12/17 22:49 Urine Glucose (UA) Negative mg/dL (NEGATIVE) 02/04/17 22:49 Urine Ketones Negative mg/dL (NEGATIVE) 02/04/17 22:49 Urine Blood Negative (NEGATIVE) 02/04/17 22:49 Urine Nitrate Negative (NEGATIVE) 02/04/17 22:49 Urine Bilirubin Negative (NEGATIVE) 02/04/17 22:49 Urine Urobilinogen 0.2 E.U./dL (<1 E.U./dL) 02/04/17 22:49 Ur Leukocyte Esterase Negative Deisy/uL (NEGATIVE) 02/04/17 22:49 Attending/Attestation - Attestation I have personally seen and examined this patient.: Yes I have fully participated in the care of the patient.: Yes I have reviewed all pertinent clinical information, including history, physical exam and plan: Yes Notes (Text): I have seen and examined the patient at bedside. This is 51 year old male with history of CVA with RLE weakness, multiple seizures, HTN who presented s/p seizure. Patient has been non compliant with medications. Neuro recommended to restart keppra. EEG revealed mild left frontal slowing without any epileptiform activity. BP improved with the medications. SW consult appreciated for prescription medications. Advised patient not to drive. Team contacted [employer] to report.
== END 2017-02-04 20:14 | disposition home or self-care (01) ==
LOC: ED 19:58 → ERH 22:26 → 2RNO 02-04 01:08
PROVIDERS: ADMIT Hospitalist; ATTEND Hospitalist
DX: G40.909 Epilepsy, unspecified, not intractable, without status epilepticus (principal); I10 Essential (primary) hypertension; I69.349 Monoplegia of lower limb following cerebral infarction affecting unspecified side; I69.351 Hemiplegia and hemiparesis following cerebral infarction affecting right dominant side; Z91.14 Patient's other noncompliance with medication regimen; S00.81XA Abrasion of other part of head, initial encounter; W19.XXXA Unspecified fall, initial encounter; Z72.820 Sleep deprivation; Z79.82 Long term (current) use of aspirin; Z79.899 Other long term (current) drug therapy; R40.2412 Glasgow coma scale score 13-15, at arrival to emergency department; D72.819 Decreased white blood cell count, unspecified
CPT/HCPCS: 36415; 70450; 71010; 80053; 81003; 82550; 82553; 82607; 82746; 83615; 83735; 84100; 84484; 85027; 85610; 85730; 93005; 97116; 97162; 99285; G0378; G8978; G8979; G8980; J1165; J1644

== ENCOUNTER 2017-02-12 12:19 | Emergency (ER) | payer MEDICARE, MEDICAID ==
[2017-02-12 12:20] VITALS: BMI 24.1
[2017-02-12 12:29] VITALS: RESP 18; TEMP 97.9
--- NOTE | 2017-02-12 12:45 | ED PDOC ---
Arrival/HPI <Todd Perkins - Last Filed: 02/12/17 13:34> - History of Present Illness Symptom Onset: Gradual Severity Level: Mild Activities at Onset: Light Context: Home <Jovanni Riley - Last Filed: 02/12/17 13:44> - General Chief Complaint: High Blood Pressure Time Seen by Provider: 02/12/17 12:30 - History of Present Illness Narrative History of Present Illness (Text): 02/12/17 12:42 CC: High blood pressure This patient is a 51yo M w/ a PMhx of HTN and previous CVA w/ RLE and RUES defecits from old charts reviewed; the patient was recently discharged on 2016 and was supposed to follow up at the [facility] clinic within the week, but never did because he "forgot" he states he took all the pills that were prescribed to him, which were only a weeks worth of medicines. He has been out since yesterday. The patient states he feels like his blood pressure is high because he just feels "off". The patient denies any fevers/chills. MINA, CP, SOB, abdominal pain, n/v/d, dysuria/freq/urg, or lower extremity pain/swelling I called the [facility] clinic myself, and made an appointment for him March 04 at 9am. The patient was urged to call as well to set up a clinic appointment for an earlier date, as the ORTHOPEDIC CAST SPECIALIST in the office now says that he will be able to get an earlier appointment, but she is just covering for the day right now. (Todd Monroe) Past Medical History - Provider Review Nursing Documentation Reviewed: Yes - Travel History Have you recently traveled outside [place] w/in the past 3 mons?: No - Infectious Disease Hx of Infectious Diseases: None - Cardiac Hx Cardiac Disorders: Yes Hx Hypertension: Yes - Pulmonary Hx Respiratory Disorders: No - Neurological Hx Neurological Disorder: Yes HX Cerebrovascular Accident: Yes (2 years ago) Hx Seizures: Yes Other/Comment: walks with a cane after stroke. - HEENT Hx HEENT Disorder: No - Renal Hx Renal Disorder: No - Endocrine/Metabolic Hx Endocrine Disorders: No - Hematological/Oncological Hx Blood Disorders: No - Integumentary Hx Dermatological Disorder: No - Musculoskeletal/Rheumatological Hx Falls: No - Gastrointestinal Hx Gastrointestinal Disorders: No - Genitourinary/Gynecological Hx Genitourinary Disorders: No - Psychiatric Hx Psychophysiologic Disorder: No Hx Substance Use: (Post ictal) - Surgical History Other/Comment: pace maker placed and removed. - Anesthesia Hx Anesthesia: No <Todd Perkins - Last Filed: 02/12/17 13:34> Family/Social History Smoking Status: Unknown If Ever Smoked Hx Alcohol Use: No Hx Substance Use: (Post ictal) <Todd Perkins - Last Filed: 02/12/17 13:34> - Physician Review Nursing Documentation Reviewed: Yes Family/Social History: No Known Family HX <Jovanni Riley - Last Filed: 02/12/17 13:44> Allergies/Home Meds <Todd Perkins - Last Filed: 02/12/17 13:34> <Jovanni Riley - Last Filed: 02/12/17 13:44> Allergies/Adverse Reactions: Allergies No Known Allergies Allergy (Verified 02/12/17 12:25) Home Medications: Home Meds Medication Instructions Recorded Confirmed Losartan/Hydrochlorothiazide 1 tab PO DAILY 06/29/15 02/12/17 [Losartan-Hctz 100-12.5 mg Tab] Review of Systems - Physician Review All systems were reviewed & negative as marked: Yes - Review of Systems Constitutional: absent: Fatigue, Weight Change Eyes: absent: Vision Changes, Photophobia ENT: absent: Hearing Changes Respiratory: absent: SOB, Cough Cardiovascular: absent: Chest Pain, Palpitations Gastrointestinal: absent: Abdominal Pain Genitourinary Male: absent: Dysuria Musculoskeletal: absent: Arthralgias Skin: absent: Rash Neurological: absent: Headache Endocrine: absent: Diaphoresis Hemo/Lymphatic: absent: Adenopathy Psychiatric: absent: Anxiety <Todd Perkins - Last Filed: 02/12/17 13:34> Physical Exam Temperature: Afebrile Blood Pressure: Normal Pulse: Regular Respiratory Rate: Normal Appearance: Positive for: Well-Appearing, Non-Toxic, Comfortable Pain Distress: None Mental Status: Positive for: Alert and Oriented X 3 - Systems Exam Head: Present: Atraumatic, Normocephalic Pupils: Present: PERRL Extroacular Muscles: Present: EOMI Conjunctiva: Present: Normal Mouth: Present: Moist Mucous Membranes Neck: Present: Normal Range of Motion Respiratory/Chest: Present: Clear to Auscultation, Good Air Exchange Cardiovascular: Present: Regular Rate and Rhythm, Normal S1, S2. No: Murmurs Abdomen: No: Tenderness, Distention Back: Present: Normal Inspection. No: CVA Tenderness Upper Extremity: Present: Normal Inspection. No: Cyanosis Lower Extremity: Present: Normal Inspection. No: Edema Neurological: Present: GCS=15, CN II-XII Intact, Speech Normal Skin: Present: Warm, Dry Psychiatric: Present: Alert, Oriented x 3 <Todd Perkins - Last Filed: 02/12/17 13:34> Medical Decision Making <Todd Perkins - Last Filed: 02/12/17 13:34> <Jovanni Riley - Last Filed: 02/12/17 13:44> ED Course and Treatment: 02/12/17 12:46 Will do CBC CMP and EKG Will give the patient his normal medications that were prescribed to him on discharge; he ran out of pills yesterday as per him Reassess and disposition A clinic appointment was made for him for March 04 at 9am he was urged to call the clinic on Thursday to set up another appointment at an earlier date as well 02/12/17 12:56 Sent prescriptions to the pharmacy here at [facility] and they will be bringing the meds to the patient here 02/12/17 13:34 The patients blood work and EKG are unremarkable and unchanged from previous the pharmacy staff brought the patients medicines here, and they were handed to him by myself and he was explained that he has an appointment for march 04 here at the [facility] clinic. the patient is stable for discharge as per Dr. Riley (Todd Perkins) Patient seen and examined with resident. Came up with treatment and disposition plan with resident. (Jovanni Riley) - Lab Interpretations Lab Results: 02/12/17 12:45 02/12/17 12:45 Lab Results 02/12/17 12:45: Sodium 141, Potassium 4.4, Chloride 101, Carbon Dioxide 29, Anion Gap 15, BUN 14, Creatinine 0.9, Est GFR ( Amer) > 60, Est GFR (Non- Af Amer) > 60, Random Glucose 111 H, Calcium 9.9, Total Bilirubin 0.9, AST 26, ALT 21, Alkaline Phosphatase 58, Total Protein 8.1, Albumin 4.5, Globulin 3.6, Albumin/Globulin Ratio 1.3 02/12/17 12:45: WBC 3.2 L, RBC 4.79, Hgb 15.3, Hct 42.1, MCV 87.9, MCH 31.9, MCHC 36.3, RDW 11.6, Plt Count 171, MPV 10.2, Gran % 53.7, Lymph % (Auto) 36.5 H , Lane % (Auto) 8.2 H, Eos % (Auto) 1.3 L, Baso % (Auto) 0.3, Gran # 1.71, Lymph # 1.2, Lane # 0.3, Eos # 0.0, Baso # 0.01 - PA / ORTHOPEDIC CAST SPECIALIST / Resident Statement / has reviewed & agrees with the documentation as recorded. / has examined the patient and agrees with the treatment plan. <Jovanni Riley - Last Filed: 02/12/17 13:44> Disposition/Present on Arrival - Present on Arrival Any Indicators Present on Arrival: No History of DVT/PE: No History of Uncontrolled Diabetes: No Urinary Catheter: No History of Decub. Ulcer: No History Surgical Site Infection Following: None - Disposition Have Diagnosis and Disposition been Completed?: Yes Disposition Time: 13:35 Patient Plan: Discharge <Todd Perkins - Last Filed: 02/12/17 13:34> <Jovanni Riley - Last Filed: 02/12/17 13:44> - Disposition Diagnosis: Medication refill Disposition: HOME/ ROUTINE Condition: FAIR Discharge Instructions (ExitCare): Medicine Refill (ED) Additional Instructions: Por favor, mantenga saucedo juany aqui en el [facility] Tienes todos los medicamentos hasta que saucedo juany que hice para Mar 04; no te olvides para ir para esta juany Si quisieras tener day juany antes, puedas llamar la clinica para hacer Que te sientas mejor Fue un placer en cuidarte Prescriptions: amLODIPine [Norvasc] 5 mg PO DAILY #21 tab Atorvastatin [Lipitor] 40 mg PO HS #21 tab hydroCHLOROthiazide [Hydrodiuril] 25 mg PO DAILY #21 tab Levetiracetam [Keppra] 500 mg PO BID #42 tablet Metoprolol Succinate [Toprol XL] 50 mg PO DAILY #21 tab Referrals: Francisco Gonzales, [Primary Care Provider] - Follow up with primary Forms: [employer] ([place])
[2017-02-12 13:17] LABS: ALB/GLOB RATIO 1.3 (1.1-1.8); ALBUMIN 4.5 g/dL (3.0-4.8); ALT/SGPT 21 U/L (7-56); AST/SGOT 26 U/L (15-59); BASO # 0.01 K/mm3 (0.0-2.0); BASO % 0.3 % (0.0-3.0); BLOOD UREA NITROGEN 14 mg/dL (7-21); CALCIUM 9.9 mg/dL (8.4-10.5); EOS % 1.3 % (1.5-5.0); GFR AFRICAN-AMERICAN > 60; GFR NON-AFRICAN AMERICAN > 60; GRAN # 1.71 (1.4-6.5); GRAN % 53.7 % (50.0-68.0); HEMOGLOBIN 15.3 gm/dL (14.0-18.0); LYMPH # 1.2 (1.2-3.4); LYMPH % 36.5 % (22.0-35.0); MEAN CELL VOLUME 87.9 fL (80.0-105.0); MEAN CORPUSCULAR HEMOGLOBIN 31.9 pg (25.0-35.0); MEAN CORPUSCULAR HGB CONC 36.3 g/dl (31.0-37.0); MEAN PLATELET VOLUME 10.2 fl (7.0-11.0); MONO # 0.3 (0.1-0.6); MONO % 8.2 % (1.0-6.0); PLATELET COUNT 171 10^3/uL (120.0-450.0); RBC 4.79 10^6/uL (3.5-6.1); RED CELL DISTRIBUTION WIDTH 11.6 % (11.5-14.5); WHITE BLOOD COUNT 3.2 10^3/ul (4.5-11.0)
[2017-02-12 13:38] VITALS: BP 132/85; PULSE 60; O2SAT 100
== END 2017-02-12 13:50 | disposition home or self-care (01) ==
LOC: ED 12:19
DX: Z76.0 Encounter for issue of repeat prescription (principal)

== ENCOUNTER 2017-03-17 17:22 | Emergency (ER) | payer MEDICARE, MEDICAID ==
[2017-03-17 17:38] VITALS: BMI 22.0
--- NOTE | 2017-03-17 18:20 | ED PDOC ---
Arrival/HPI - General Historian: Patient - History of Present Illness Time/Duration: Prior to Arrival Symptom Onset: Sudden Symptom Course: Unchanged - General Chief Complaint: Lower Extremity Problem/Injury Time Seen by Provider: 03/17/17 17:43 - History of Present Illness Narrative History of Present Illness (Text): 03/17/17 18:24 51yo M with PMHx of CVA, HTN, Seizures here with uncontrolled hypertension. Patient states that he was in his PMDs office today (Dr. Jensen) and was sent to the ER via EMS for high blood pressure. Patient states that he has been out of his BP meds for the past 6 days. He has been taking his Keppra, however, but is running low on his supply. Patient denies any complaints and states that he is completely asymptomatic due to his uncontrolled hypertension currently. No complaints. He states that he has an appointment with Dr. Jensen tomorrow for medication refill. PMD: Dr. Jensen PMHx: CVA, Seizures, HTN NKDA Home Meds: Atorvastatin 40mg, Amlodipine 5mg, HCTZ 25mg, Metoprolol Succ 50mg, Keppra 500mg BID (Shanti,Rakesh) Past Medical History - Provider Review Nursing Documentation Reviewed: Yes - Infectious Disease Hx of Infectious Diseases: None - Cardiac Hx Cardiac Disorders: Yes Hx Hypertension: Yes - Pulmonary Hx Respiratory Disorders: No - Neurological Hx Neurological Disorder: Yes HX Cerebrovascular Accident: Yes (09/02/2013) Hx Seizures: Yes Other/Comment: walks with a cane after stroke. - HEENT Hx HEENT Disorder: No - Renal Hx Renal Disorder: No - Endocrine/Metabolic Hx Endocrine Disorders: No - Hematological/Oncological Hx Blood Disorders: No - Integumentary Hx Dermatological Disorder: No - Musculoskeletal/Rheumatological Hx Falls: No - Gastrointestinal Hx Gastrointestinal Disorders: No - Genitourinary/Gynecological Hx Genitourinary Disorders: No - Psychiatric Hx Psychophysiologic Disorder: No Hx Substance Use: No (Post ictal) - Surgical History Other/Comment: pace maker placed and removed in 2013 - Anesthesia Hx Anesthesia: No Family/Social History - Physician Review Nursing Documentation Reviewed: Yes Family/Social History: Unknown Family HX Smoking Status: Never Smoked Hx Alcohol Use: No Hx Substance Use: No (Post ictal) Allergies/Home Meds Allergies/Adverse Reactions: Allergies No Known Allergies Allergy (Verified 02/12/17 12:25) Review of Systems - Physician Review All systems were reviewed & negative as marked: Yes - Review of Systems Constitutional: Normal Eyes: Normal ENT: Normal Respiratory: Normal Cardiovascular: Normal Gastrointestinal: Normal Genitourinary Male: Normal Musculoskeletal: Normal Skin: Normal Neurological: Normal Endocrine: Normal Hemo/Lymphatic: Normal Psychiatric: Normal Physical Exam Vital Signs Reviewed: Yes Temperature: Afebrile Blood Pressure: Normal Pulse: Regular Respiratory Rate: Normal Appearance: Positive for: Well-Appearing, Non-Toxic, Comfortable Pain Distress: None Mental Status: Positive for: Alert and Oriented X 3 - Systems Exam Head: Present: Atraumatic, Normocephalic Extroacular Muscles: Present: EOMI Mouth: Present: Moist Mucous Membranes Neck: Present: Normal Range of Motion Respiratory/Chest: Present: Clear to Auscultation, Good Air Exchange. No: Respiratory Distress, Accessory Muscle Use, Wheezes Cardiovascular: Present: Regular Rate and Rhythm, Normal S1, S2. No: Murmurs Abdomen: No: Tenderness, Distention, Peritoneal Signs, Rebound, Guarding Back: Present: Normal Inspection Upper Extremity: Present: Normal Inspection. No: Cyanosis, Edema Lower Extremity: Present: Normal Inspection. No: Edema, CALF TENDERNESS Neurological: Present: GCS=15 Skin: Present: Warm, Dry, Normal Color Psychiatric: Present: Alert, Oriented x 3 Medical Decision Making ED Course and Treatment: 03/17/17 18:35 51yo M here with uncontrolled HTN. Patient has been out of his BP meds for the past 6 days - Will give all of his home meds here in the ED. - Patient states that he has an appointment with Dr. Jensen tomorrow and plans to go to him for refills on all of his medications. Patient understands and agrees with plan. (Rakesh Moser) 03/17/17 18:50 Patient seen by resident and then evaluation by me. Patient was sent to ED by PMD for asymptomatic hypertension. He reports not taking his medication because he ran out of them. He has normal physical exam and has no complaints and has PMD follow-up tomorrow. Patient was given refill of medications that he ran out of and was instructed to follow-up with PMD. (Maggie Watkins) - Medication Orders Current Medication Orders: Discontinued Medications Amlodipine Besylate (Norvasc) 5 mg PO STAT STA Stop: 03/17/17 18:22 Last Admin: 03/17/17 18:31 Dose: 5 mg Atorvastatin Calcium (Lipitor) 40 mg PO STAT STA Stop: 03/17/17 18:21 Last Admin: 03/17/17 18:30 Dose: 40 mg Hydrochlorothiazide (Hydrodiuril) 25 mg PO STAT STA Stop: 03/17/17 18:21 Last Admin: 03/17/17 18:31 Dose: 25 mg Levetiracetam (Keppra) 500 mg PO STAT STA Stop: 03/17/17 18:22 Last Admin: 03/17/17 18:30 Dose: 500 mg Metoprolol Succinate (Toprol Xl) 50 mg PO STAT STA Stop: 03/17/17 18:23 Last Admin: 03/17/17 18:30 Dose: 50 mg - PA / [employer]LEGE T[employer]OR / Resident Statement / has reviewed & agrees with the documentation as recorded. / has examined the patient and agrees with the treatment plan. Disposition/Present on Arrival - Present on Arrival Any Indicators Present on Arrival: No History of DVT/PE: No History of Uncontrolled Diabetes: No Urinary Catheter: No History of Decub. Ulcer: No History Surgical Site Infection Following: None - Disposition Have Diagnosis and Disposition been Completed?: Yes Disposition Time: 18:37 Patient Plan: Discharge - Disposition Diagnosis: Asymptomatic hypertension Disposition: HOME/ ROUTINE Patient Problems: Current Active Problems Problem Status Onset Asymptomatic hypertension Acute Condition: GOOD Discharge Instructions (ExitCare): Hypertension (ED) Additional Instructions: 1. Follow up with your Primary Care Physician, Dr. Jensen tomorrow for medication refill 2. Return to the ER with any concerning symptoms Referrals: Eloisa Jensen DO [[facility]] - Follow up with primary Forms: [employer] ([place]occan)
[2017-03-17] MEDS ORDERED: Metoprolol Succinate 50 mg XL Tab PO STA (18:22)
[2017-03-17 19:06] VITALS: BP 160/90; PULSE 79; RESP 18; TEMP 98; O2SAT 99
== END 2017-03-17 19:07 | disposition home or self-care (01) ==
LOC: ED 17:22
DX: I10 Essential (primary) hypertension (principal)